=== PATIENT | male | born 1985 | race Two or more races ===

== ENCOUNTER 2021-10-29 07:21 | Emergency (ER) | payer SELFPAY ==
[2021-10-29 07:37] VITALS: BP 140/105; PULSE 56; RESP 16; TEMP 97.2
[2021-10-29 09:16] LABS: Basophils # (A) 0.1 k/uL (0-0.2); Basophils % (A) 1 %; Eosinophils # (A) 0.1 k/uL (0-0.7); Eosinophils % (A) 1 %; HCT 54.1 % (39.0-53.0); HGB 18.1 gm/dL (13.0-17.5); Lymphocytes # (A) 2.1 k/uL (1.0-4.8); Lymphocytes % (A) 27 %; MCHC 33.5 g/dL (31.0-37.0); MCV 95.5 fL (80.0-100.0); Monocytes # (A) 0.5 k/uL (0-1.0); Monocytes % (A) 6 %; Neutrophils % (A) 63 %; Platelet Count 193 k/uL (150-450); RBC 5.67 m/uL (4.30-5.90); RDW 13.7 % (11.5-15.5); WBC 7.8 k/uL (3.8-10.6)
[2021-10-29 09:29] LABS: Appearance,Urine Clear (Clear); Bilirubin,Urine Negative (Negative); Blood,Urine Negative (Negative); Color,Urine Yellow; Glucose,Urine (UA) Negative (Negative); Ketones,Urine Negative (Negative); Leukocyte Esterase,Urine Negative (Negative); Nitrite,Urine Negative (Negative); Protein,Urine Trace (Negative); Specific Gravity,Urine 1.033 (1.001-1.035)
[2021-10-29 09:43] LABS: ALT 27 U/L (4-49); AST 34 U/L (17-59); African American GFR (CKD) >90 (>60 ml/min/1.73 sqM); Albumin 4.4 g/dL (3.5-5.0); Alkaline Phosphatase 43 U/L (38-126); Anion Gap 5 mmol/L; Blood Urea Nitrogen 23 mg/dL (9-20); Carbon Dioxide 28 mmol/L (22-30); Chloride 105 mmol/L (98-107); Glucose 88 mg/dL (74-99); Lipase 187 U/L (23-300); Non-African American GFR(CKD) 78 (>60 ml/min/1.73 sqM); Sodium 138 mmol/L (137-145); Total Bilirubin 1.2 mg/dL (0.2-1.3); Total Protein 7.1 g/dL (6.3-8.2)
[2021-10-29 10:04] LABS: Potassium 4.6 mmol/L (3.5-5.1)
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
--- NOTE | 2021-10-29 10:41 | US ---
EXAMINATION TYPE: US scrotum with doppler. Grayscale and color Doppler Duplex imaging performed of t al scrotum. DATE OF EXAM: 10/29/2021 COMPARISON: NONE CLINICAL HISTORY: pain. EXAM MEASUREMENTS: TESTICLES: Right Testicle: 4.5 x 1.7 x 2.5 cm Left Testicle: 4.4 x 1.6 x 3.1 cm EPIDIDYMIS HEAD: Right Epididymis: 0.8 cm Left Epididymis: 0.7 cm Doppler performed to assess for testicular vascularity; good bilateral color flow and waveforms are s een. There is no evidence of testicular torsion. Presence of hydroceles: no Presence of varicoceles: no IMPRESSION: No acute process.
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
== END 2021-10-29 11:37 | disposition home or self-care (01) ==
LOC: EC 07:21
DX: T74.21XA Adult sexual abuse, confirmed, initial encounter (principal); K62.89 Other specified diseases of anus and rectum
CPT/HCPCS: 36415; 80053; 83690; 85025; 81003; 93975; 76870; 74177; 99285; Q9967